=== PATIENT | male | born 1955 | race Caucasian/White ===

== ENCOUNTER 2018-04-27 09:50 | Emergency (ER) | payer SELFPAY ==
[~2018-04-27] VITALS: Ht 180.3 cm; Wt 80.0 kg
[2018-04-27] MEDS ORDERED: HYDROCODONE/ACETAMINOPHEN 5/325MG TABLET PO ONE (10:30)
[2018-04-27 12:02] VITALS: BP 134/76
== END 2018-04-27 12:02 | disposition home or self-care (01) ==
LOC: ER 10:05
DX: S70.01XA Contusion of right hip, initial encounter (principal); I10 Essential (primary) hypertension; Z88.0 Allergy status to penicillin; W01.0XXA Fall on same level from slipping, tripping and stumbling without subsequent striking against object, initial encounter; Y93.89 Activity, other specified; Y92.511 Restaurant or cafe as the place of occurrence of the external cause; Y99.8 Other external cause status
CPT/HCPCS: 73502; 73552; 99284